=== PATIENT | female | born 1975 | race Asian ===

== ENCOUNTER 2020-05-14 13:36 | Emergency (ER) | payer MEDICAID ==
[~2020-05-14] VITALS: Ht 160 cm; Wt 65.9 kg
[2020-05-14] MEDS ORDERED: HYDR28.45 TP (13:50)
[2020-05-14] MEDS ORDERED: DIPH25CA85 PO (13:50)
[2020-05-14 13:52] VITALS: BP 126/85
== END 2020-05-14 14:21 | disposition home or self-care (01) ==
LOC: EMS 13:36
DX: R21 Rash and other nonspecific skin eruption (principal); Z88.1 Allergy status to other antibiotic agents

== ENCOUNTER 2020-09-18 18:43 | Emergency (ER) | payer MEDICAID ==
[~2020-09-18] VITALS: Ht 160 cm; Wt 63.6 kg
[~2020-09-18 18:43] MED LIST: DIPH25CA85 PO; HYDR28.45 TP
[2020-09-18] MEDS ORDERED: PERTUSS(ACELL),DIPH,TET VAC/PF 0.5 ML SYRINGE IM. ONE (20:00)
[2020-09-18 20:20] VITALS: BP 137/77
[2020-09-18 20:42] LABS: BASOPHILS % (AUTO) 0.6 % (0.0-2.0); EOSINOPHILS % (AUTO) 0.9 % (1.0-6.0); HEMATOCRIT 37.1 % (36-46); HEMOGLOBIN 11.8 g/dL (12.0-16.0); LYMPHOCYTES # (AUTO) 2.8 K/uL (1.0-4.8); MEAN CORPUSCULAR HGB CONC 31.8 G/dL (31.0-37.0); MEAN CORPUSCULAR VOLUME 66 fL (80-100); MONOCYTES # (AUTO) 0.6 K/uL (0.1-1.0); MONOCYTES % (AUTO) 9.7 % (2.0-9.0); NEUTROPHILS # (AUTO) 2.5 K/uL (1.8-7.7); NEUTROPHILS % (AUTO) 41.8 % (40.0-70.0); PLATELET COUNT (AUTO) 218 K/uL (150-450); RED BLOOD CELL COUNT(AUTO) 5.62 MIL/uL (4.00-5.20); RED CELL DISTRIBUTION WIDTH 16.3 % (11.5-14.5)
[2020-09-18 20:53] LABS: ANION GAP 10 mmol/L (8-16); CALCIUM, TOTAL 9.6 mg/dL (8.8-10.5); CARBON DIOXIDE 26 mmol/L (22-29); CHLORIDE 102 mmol/L (98-107); CREATININE 0.57 mg/dL (0.60-1.30); GLOMERULAR FILTR. RATE CALC > 60 mL/min (>60); GLUCOSE,RANDOM 108 mg/dL (70-110); POTASSIUM 4.1 mmol/L (3.5-5.1); SODIUM SERUM 138 mmol/L (136-145); UREA NITROGEN, BLOOD 13 mg/dL (7-18)
[2020-09-18 20:58] LABS: ALANINE AMINOTRANSFERASE 21 U/L (12-78); ALKALINE PHOSPHATASE 76 U/L (46-116); ASPARTATE AMINOTRANSFERASE 15 U/L (15-37); BILIRUBIN,TOTAL 0.5 mg/dL (0.1-1.0); TOTAL PROTEIN, SERUM 7.7 g/dL (6.4-8.2)
[2020-09-18 21:09] LABS: PLATELET MORPHOLOGY COMMENT LARGE PLTS PRESENT
[2020-09-20 06:06] LABS: HIV 1-2 SCREEN 4TH GEN W/RFLX Non Reactive (Non Reactive)
== END 2020-09-18 20:30 | disposition home or self-care (01) ==
LOC: EMS 18:46
DX: S61.032A Puncture wound without foreign body of left thumb without damage to nail, initial encounter (principal); Z88.1 Allergy status to other antibiotic agents; W46.1XXA Contact with contaminated hypodermic needle, initial encounter; Y93.89 Activity, other specified; Y92.89 Other specified places as the place of occurrence of the external cause; Y99.8 Other external cause status
CPT/HCPCS: 80053; 85025; 87389; 90471; 90715; 99283

== ENCOUNTER 2020-12-13 16:26 | Emergency (ER) | payer MEDICAID ==
[~2020-12-13] VITALS: Ht 160 cm; Wt 59.1 kg
[~2020-12-13 16:26] MED LIST changes: -HYDR28.45 TP; +HYDR30CR39 TP
[2020-12-13] MEDS ORDERED: FLUORESCEIN SODIUM 1 MG STRIP OU ONE (19:15)
[2020-12-13] MEDS ORDERED: ERYTHROMYCIN 0.5% 3.5 GM TUBE OPHTHALMIC OINTMENT OD ONE (19:45)
[2020-12-13 20:15] VITALS: BP 137/85
== END 2020-12-13 20:38 | disposition home or self-care (01) ==
LOC: EMS 16:37
DX: H10.9 Unspecified conjunctivitis (principal); Z88.1 Allergy status to other antibiotic agents
CPT/HCPCS: 99283

== ENCOUNTER 2022-02-13 16:31 | Emergency (ER) | payer MEDICAID ==
[~2022-02-13] VITALS: Ht 160 cm; Wt 61.4 kg
[2022-02-13] MEDS ORDERED: METH5TAB PO (16:40)
[2022-02-13 18:15] VITALS: BP 139/62
[2022-02-13] MEDS ORDERED: IBUPROFEN 600 MG TABLET PO ONE (18:15)
== END 2022-02-13 18:28 | disposition home or self-care (01) ==
LOC: EMS 16:43
DX: M25.562 Pain in left knee (principal); E03.9 Hypothyroidism, unspecified; Z88.6 Allergy status to analgesic agent
CPT/HCPCS: 99283

== ENCOUNTER 2023-03-11 15:31 | Emergency (ER) | payer MEDICAID, OTHER ==
[~2023-03-11] VITALS: Ht 154.9 cm; Wt 59.1 kg
[~2023-03-11 15:31] MED LIST changes: -DIPH25CA85 PO; -HYDR30CR39 TP; +METH5TAB PO
[2023-03-11 15:38] VITALS: TEMP 99.5
[2023-03-11 16:24] LABS: COVID AG,FIA SOURCE NASAL SWAB
[2023-03-11 16:59] LABS: SARS-COV2 (COVID) ANTIGEN,FIA Negative (Negative)
[2023-03-11 17:21] LABS: INFLUENZA TYPE A NEGATIVE FOR TYPE A (NEGATIVE); INFLUENZA TYPE B POSITIVE FOR TYPE B (NEGATIVE)
[2023-03-11] MEDS ORDERED: PSEU-191 PO (18:27)
[2023-03-11 18:31] VITALS: BP 136/84; PULSE 90; RESP 16
== END 2023-03-11 19:00 | disposition home or self-care (01) ==
LOC: EMS 15:31
DX: J10.1 Influenza due to other identified influenza virus with other respiratory manifestations (principal); E05.90 Thyrotoxicosis, unspecified without thyrotoxic crisis or storm; Z88.8 Allergy status to other drugs, medicaments and biological substances; Z20.822 Contact with and (suspected) exposure to COVID-19
CPT/HCPCS: 99284; 71045; 87426; 87804; C9803

== ENCOUNTER 2023-07-02 10:44 | Emergency (ER) | payer MEDICAID ==
[~2023-07-02] VITALS: Ht 160 cm; Wt 63.6 kg
[~2023-07-02 10:44] MED LIST changes: +PSEU-191 PO
[2023-07-02 10:52] VITALS: TEMP 97.9
[2023-07-02] MEDS ORDERED: IBUP-1492 PO (12:42)
[2023-07-02] MEDS ORDERED: SULF-261 PO (12:42)
[2023-07-02] MEDS ORDERED: CEPH-558 PO (12:42)
[2023-07-02] MEDS: IBUPROFEN 600 MG TABLET PO ONE (13:29)
[2023-07-02] MEDS: CefTRIAXone SODIUM 1 GM/VIAL IM ONE (13:29)
[2023-07-02] MEDS: LIDOCAINE/PF 1% 2 ML VIAL IM ONE (13:29)
[2023-07-02 13:35] VITALS: BP 132/84; PULSE 79; RESP 16
== END 2023-07-02 13:45 | disposition home or self-care (01) ==
LOC: EMS 10:44
DX: N61.0 Mastitis without abscess (principal); E05.90 Thyrotoxicosis, unspecified without thyrotoxic crisis or storm; Z88.8 Allergy status to other drugs, medicaments and biological substances
CPT/HCPCS: 99283; 96372; J0696; J3490